=== PATIENT | female | born 1955 | race Caucasian/White ===

== ENCOUNTER → 2022-04-05 | Outpatient (CLI) | payer BC, MEDICARE | LOC: EXRD 13:15 | DX: R07.9 Chest pain, unspecified (principal); M25.541 Pain in joints of right hand; M25.542 Pain in joints of left hand; M54.9 Dorsalgia, unspecified; M54.50 Low back pain, unspecified; R06.02 Shortness of breath; M47.812 Spondylosis without myelopathy or radiculopathy, cervical region; M47.814 Spondylosis without myelopathy or radiculopathy, thoracic region; M47.816 Spondylosis without myelopathy or radiculopathy, lumbar region | CPT/HCPCS: 71046; 72040; 72070; 72100; 73030; 73130 ==

== ENCOUNTER → 2022-05-04 | Outpatient (CLI) | payer BC, MEDICARE | LOC: KOH-I 05-02 08:15 | DX: R13.10 Dysphagia, unspecified (principal); R07.9 Chest pain, unspecified; R10.13 Epigastric pain; K58.9 Irritable bowel syndrome, unspecified; R27.0 Ataxia, unspecified; R29.2 Abnormal reflex; R41.3 Other amnesia; R51.9 Headache, unspecified | CPT/HCPCS: 70551; 76536; 76705 ==

== ENCOUNTER → 2022-05-07 | Outpatient (CLI) | payer BC | LOC: HEART 5 08:34 | DX: R07.9 Chest pain, unspecified (principal); R06.02 Shortness of breath; R68.89 Other general symptoms and signs | CPT/HCPCS: 78452; A9502 ==

== ENCOUNTER → 2022-05-16 | Outpatient (CLI) | payer BC | LOC: HEART 5 10:49 | DX: R07.9 Chest pain, unspecified (principal); R68.89 Other general symptoms and signs; R06.02 Shortness of breath | CPT/HCPCS: 93306 ==